=== PATIENT | male | born 1935 | race Caucasian/White ===

== ENCOUNTER 2017-08-22 21:09 | Inpatient (IN) | END 2017-08-24 19:20 | disposition home or self-care (01) | DRG 208 ==

== ENCOUNTER 2017-09-05 07:04 | Inpatient (IN) | END 2017-09-07 17:25 | disposition home or self-care (01) | DRG 689 ==

== ENCOUNTER 2017-09-10 19:34 | Inpatient (IN) | END 2017-09-12 21:00 | disposition home or self-care (01) | DRG 291 ==